=== PATIENT | male | born 1970 | race Caucasian/White ===

== ENCOUNTER 2018-03-14 21:05 | Emergency (ER) | payer BC ==
--- NOTE | 2018-03-14 21:07 | ER Report ---
History and Physical Time Seen By MD: 21:07 HPI/ROS CHIEF COMPLAINT: Right-sided flank and right sided abdominal pain HISTORY OF PRESENT ILLNESS: Patient is a 48-year-old male here with complaints of right-sided flank pain with radiation to the right groin, hematuria which started approximately 45 minutes prior to arrival. Patient denies prior history of nephrolithiasis. Patient reports moderate distress and severe pain. Patient denies chest pain, shortness breath, fevers, chills, dysuria, headache, blurred vision. REVIEW OF SYSTEMS: Constitutional: No fever, no chills. Eyes: No discharge. ENT: No sore throat. Cardiovascular: No chest pain, no palpitations. Respiratory: No cough, no shortness of breath. Gastrointestinal: + right abdominal pain, + nausea Genitourinary: + hematuria, + dysuria Musculoskeletal: + right flank pain. Skin: No rashes. Neurological: No headache. Allergies: Coded Allergies: No Known Drug Allergies (Unverified , 03/14/18) Home Meds Active Scripts Phenazopyridine Hcl (PHENAZOPYRIDINE HCL) 200 Mg Tablet, 200 MG PO TID for 2 Days, #6 TAB Prov:ELSA MALIN DO 03/14/18 Tamsulosin Hcl (FLOMAX) 0.4 Mg Cap.er.24h, 0.4 MG PO QDAY, #14 CAP 0 Refills Prov:ELSA MALIN DO 03/14/18 Ondansetron (ZOFRAN ODT) 4 Mg Tab.rapdis, 4 MG PO Q6H Y for NAUSEA/VOMITING, # 20 TAB.HEMA 0 Refills Prov:ELSA MALIN DO 03/14/18 Tramadol Hcl (TRAMADOL HCL) 50 Mg Tablet, 50 MG PO Q6H Y for PAIN, #12 TAB 0 Refills Prov:ELSA MALIN DO 03/14/18 Constitutional Vital Sign - Last 24 Hours 03/14/18 03/14/18 03/14/18 03/14/18 21:11 21:30 21:35 22:15 Temp 98.3 Pulse 76 ??? Resp 24 B/P (MAP) 141/108 145/91 (109) 133/97 (109) Pulse Ox 98 92 03/14/18 03/14/18 03/14/18 03/14/18 22:24 22:25 22:30 22:45 Pulse 68 ??? 76 B/P (MAP) 120/72 (88) Pulse Ox 100 100 100 O2 Flow Rate 2.0 03/14/18 23:00 Pulse 77 B/P (MAP) 106/66 (79) Pulse Ox 99 Physical Exam General Appearance: The patient is alert, has no immediate need for airway protection and no signs of toxicity. + moderate distress due to pain Eyes: Pupils equal and round no pallor or injection. ENT, Mouth: Mucous membranes are moist. Respiratory: There are no retractions, lungs are clear to auscultation. Cardiovascular: Regular rate and rhythm. Gastrointestinal: Abdomen is soft and + tender in the right lower abdomen, no masses, bowel sounds normal. Neurological: No focal neuro deficits Skin: Warm and dry, no rashes. Musculoskeletal: + right flank pain Extremities are nontender, nonswollen and have full range of motion. DIFFERENTIAL DIAGNOSIS: After history and physical exam differential diagnosis was considered for abdominal pain including but not limited to appendicitis, cholecystitis, gastritis and urinary tract infection. Nephrolithiasis, pyelonephritis Medical Decision Making Data Points Result Diagram: 03/14/18211703/14/188 Laboratory Hematology Test 03/14/18 21:18 03/14/18 21:19 Red Blood Count 5.20 M/uL (4.00-5.60) Mean Corpuscular Volume 85.2 fL (80.0-96.0) Mean Corpuscular Hemoglobin 29.2 pg (26.0-33.0) Mean Corpuscular Hemoglobin Concent 34.3 g/dL (32.0-36.0) Red Cell Distribution Width 13.1 % (11.5-14.5) Mean Platelet Volume 8.0 fL (7.2-11.1) Neutrophils (%) (Auto) % (39.4-72.5) Lymphocytes (%) (Auto) % (17.6-49.6) Monocytes (%) (Auto) % (4.1-12.4) Eosinophils (%) (Auto) % (0.4-6.7) Basophils (%) (Auto) % (0.3-1.4) Nucleated RBC Relative Count (auto) /100WBC Neutrophils # (Auto) K/uL (2.0-7.4) Lymphocytes # (Auto) K/uL (1.3-3.6) Monocytes # (Auto) K/uL (0.3-1.0) Eosinophils # (Auto) K/uL (0.0-0.5) Basophils # (Auto) K/uL (0.0-0.1) Nucleated RBC Absolute Count (auto) K/uL Neutrophils % (Manual) 63 % (39.4-72.5) Lymphocytes % (Manual) 16 % (17.6-49.6) Atypical Lymphocytes % 12 % Monocytes % (Manual) 7 % (4.1-12.4) Eosinophils % (Manual) 2 % (0.4-6.7) Basophils % (Manual) 0 % (0.3-1.4) Peripheral Blood Smear Yes Y/N Sodium Level 140 mmol/L (137-145) Potassium Level 3.3 mmol/L (3.5-5.0) Chloride Level 103 mmol/L (98-107) Carbon Dioxide Level 26 mmol/L (22-30) Blood Urea Nitrogen 20 mg/dl (9-21) Creatinine 1.50 mg/dl (0.66-1.25) Glomerular Filtration Rate Calc 49.7 Random Glucose 120 mg/dl (75-110) Calcium Level 9.0 mg/dl (8.4-10.2) Total Bilirubin 0.3 mg/dl (0.2-1.3) Aspartate Amino Transf (AST/SGOT) 21 U/L (0-35) Alanine Aminotransferase (ALT/SGPT) 17 U/L (0-56) Alkaline Phosphatase 66 U/L (0-126) Total Protein 7.0 g/dl (6.3-8.2) Albumin 4.2 g/dl (3.5-5.0) Lipase 79 U/L (23-300) Urine Color Yellow Urine Clarity Cloudy Urine pH 5.0 pH (4.8-9.5) Urine Specific Marion 1.025 Urine Protein 30 mg/dL (NEGATIVE) Urine Glucose (UA) Negative mg/dL (NEGATIVE) Urine Ketones Negative mg/dL (NEGATIVE) Urine Blood Large (NEGATIVE) Urine Nitrite Negative (NEGATIVE) Urine Bilirubin Negative (NEGATIVE) Urine Urobilinogen 2.0 mg/dL (0.2-1.9) Urine Leukocyte Esterase Negative (NEGATIVE) Urine RBC 809 /HPF (0-2/HPF) Urine WBC 9 /HPF (0-5/HPF) Urine Squamous Epithelial Cells Moderate /LPF (</=FEW) Urine Transitional Epithelial Cells Few /LPF (NONE-FEW) Urine Calcium Oxalate Crystals Few /HPF (NONE) Urine Bacteria Negative /HPF (NONE-FEW) Urine Mucus Few /HPF (NONE-FEW) Chemistry Test 03/14/18 21:18 03/14/18 21:19 White Blood Count 13.7 k/uL (4.5-11.0) Red Blood Count 5.20 M/uL (4.00-5.60) Hemoglobin 15.2 g/dL (14.0-18.0) Hematocrit 44.3 % (42.0-52.0) Mean Corpuscular Volume 85.2 fL (80.0-96.0) Mean Corpuscular Hemoglobin 29.2 pg (26.0-33.0) Mean Corpuscular Hemoglobin Concent 34.3 g/dL (32.0-36.0) Red Cell Distribution Width 13.1 % (11.5-14.5) Platelet Count 347 K/uL (150-450) Mean Platelet Volume 8.0 fL (7.2-11.1) Neutrophils (%) (Auto) % (39.4-72.5) Lymphocytes (%) (Auto) % (17.6-49.6) Monocytes (%) (Auto) % (4.1-12.4) Eosinophils (%) (Auto) % (0.4-6.7) Basophils (%) (Auto) % (0.3-1.4) Nucleated RBC Relative Count (auto) /100WBC Neutrophils # (Auto) K/uL (2.0-7.4) Lymphocytes # (Auto) K/uL (1.3-3.6) Monocytes # (Auto) K/uL (0.3-1.0) Eosinophils # (Auto) K/uL (0.0-0.5) Basophils # (Auto) K/uL (0.0-0.1) Nucleated RBC Absolute Count (auto) K/uL Neutrophils % (Manual) 63 % (39.4-72.5) Lymphocytes % (Manual) 16 % (17.6-49.6) Atypical Lymphocytes % 12 % Monocytes % (Manual) 7 % (4.1-12.4) Eosinophils % (Manual) 2 % (0.4-6.7) Basophils % (Manual) 0 % (0.3-1.4) Peripheral Blood Smear Yes Y/N Glomerular Filtration Rate Calc 49.7 Calcium Level 9.0 mg/dl (8.4-10.2) Total Bilirubin 0.3 mg/dl (0.2-1.3) Aspartate Amino Transf (AST/SGOT) 21 U/L (0-35) Alanine Aminotransferase (ALT/SGPT) 17 U/L (0-56) Alkaline Phosphatase 66 U/L (0-126) Total Protein 7.0 g/dl (6.3-8.2) Albumin 4.2 g/dl (3.5-5.0) Lipase 79 U/L (23-300) Urine Color Yellow Urine Clarity Cloudy Urine pH 5.0 pH (4.8-9.5) Urine Specific Marion 1.025 Urine Protein 30 mg/dL (NEGATIVE) Urine Glucose (UA) Negative mg/dL (NEGATIVE) Urine Ketones Negative mg/dL (NEGATIVE) Urine Blood Large (NEGATIVE) Urine Nitrite Negative (NEGATIVE) Urine Bilirubin Negative (NEGATIVE) Urine Urobilinogen 2.0 mg/dL (0.2-1.9) Urine Leukocyte Esterase Negative (NEGATIVE) Urine RBC 809 /HPF (0-2/HPF) Urine WBC 9 /HPF (0-5/HPF) Urine Squamous Epithelial Cells Moderate /LPF (</=FEW) Urine Transitional Epithelial Cells Few /LPF (NONE-FEW) Urine Calcium Oxalate Crystals Few /HPF (NONE) Urine Bacteria Negative /HPF (NONE-FEW) Urine Mucus Few /HPF (NONE-FEW) Urinalysis Test 03/14/18 21:19 Urine Color Yellow Urine Clarity Cloudy Urine pH 5.0 pH (4.8-9.5) Urine Specific Marion 1.025 Urine Protein 30 mg/dL (NEGATIVE) Urine Glucose (UA) Negative mg/dL (NEGATIVE) Urine Ketones Negative mg/dL (NEGATIVE) Urine Blood Large (NEGATIVE) Urine Nitrite Negative (NEGATIVE) Urine Bilirubin Negative (NEGATIVE) Urine Urobilinogen 2.0 mg/dL (0.2-1.9) Urine Leukocyte Esterase Negative (NEGATIVE) Urine RBC 809 /HPF (0-2/HPF) Urine WBC 9 /HPF (0-5/HPF) Urine Squamous Epithelial Cells Moderate /LPF (</=FEW) Urine Transitional Epithelial Cells Few /LPF (NONE-FEW) Urine Calcium Oxalate Crystals Few /HPF (NONE) Urine Bacteria Negative /HPF (NONE-FEW) Urine Mucus Few /HPF (NONE-FEW) EKG/Imaging Imaging ABDOMEN/PELVIS W/O CONTRAST EXAMINATION: CT scan and pelvis without contrast HISTORY: Renal colic TECHNIQUE: CT scan of the abdomen and pelvis performed from the lung base through pubic symphysis without contrast from lung base through pubic symphysis. COMPARISON STUDIES: None One of the following dose optimization techniques was utilized in the performance of this exam: Automated exposure control; adjustment of the mA and/ or kV according to the patient's size; or use of an iterative reconstruction technique. Specific details can be referenced in the facility's radiology CT exam operational policy. FINDINGS: Please note that this exam was tailored for detection of urinary stones. Portions of the upper abdomen may not be included. Also, with intravenous contrast, sensitivity to detection of parenchymal disease is limited. Right kidney and ureter: There is obstructed right collecting system with parenchymal edema and asymmetric enlargement of the right kidney and a dilated right ureter down to an obstructing stone at the vesicoureteral junction measuring 3.5 mm. (Image 126 series 2). Several nonobstructing 2 mm stones scattered within the right kidney. 2. No obvious left renal calculi. Left kidney and ureter: Negative Bladder: Bladder is decompressed. Liver/Biliary: No gallstones Pancreas: Negative Spleen: Negative Adrenal glands: Negative Kidneys/Retroperitoneum: See above Pelvic structures: Negative Bowel/peritoneum/mesenteries: No bowel edema. Appendix normal no appendicitis Vessels: Mild atherosclerotic disease. No aneurysmal dilatation. Musculoskeletal/body wall: Negative Lymph node assessment: Negative Lower chest: Negative IMPRESSION: Moderate right renal hydronephrosis from obstructing 3.5 mm distal right ureteral stone. ED Course/Re-evaluation ED Course Patient is a 48-year-old male here with complaints of right-sided flank pain with radiation to the groin and hematuria. Patient is afebrile, hemodynamically stable at time of evaluation. Urinalysis showed no acute signs of infection. Labs did demonstrate mild elevation of creatinine likely not due to this acute process. Patient was advised to follow-up with his family doctor for further evaluation of the elevated creatinine. CT imaging confirms a 3.5 cm distal right ureteral stone with moderate hydronephrosis of the right kidney. I explained to the patient that due to the size of the stone, it will likely pass spontaneously. Patient was given lidocaine intravenously, morphine and Toradol as well as fluids and Zofran for symptom management. He was given Pyridium, Flomax and prescription for Zofran for home use. I recommended that the patient follow up with urology in the outpatient setting in the next couple days and he voiced understanding. Patient remained stable throughout course, afebrile, hemodynamically stable. Decision to Disposition Date: Mar 14, 2018 Decision to Disposition Time: 23:20 Depart Departure Latest Vital Signs Vital Signs Date Time Temp Pulse Resp B/P (MAP) Pulse Ox O2 Delivery O2 Flow Rate FiO2 03/14/18 23:00 77 106/66 (79) 99 03/14/18 22:24 2.0 03/14/18 21:11 98.3 24 Impression: Primary Impression: Ureterolithiasis Condition: Improved Disposition: HOME OR SELF-CARE New Scripts Phenazopyridine Hcl (PHENAZOPYRIDINE HCL) 200 Mg Tablet 200 MG PO TID for 2 Days, #6 TAB Prov: ELSA MALIN DO 03/14/18 Tamsulosin Hcl (FLOMAX) 0.4 Mg Cap.er.24h 0.4 MG PO QDAY, #14 CAP 0 Refills Prov: ELSA MALIN DO 03/14/18 Ondansetron (ZOFRAN ODT) 4 Mg Tab.rapdis 4 MG PO Q6H Y for NAUSEA/VOMITING, #20 TAB.HEMA 0 Refills Prov: ELSA MALIN DO 03/14/18 Tramadol Hcl (TRAMADOL HCL) 50 Mg Tablet 50 MG PO Q6H Y for PAIN, #12 TAB 0 Refills Prov: ELSA MALIN DO 03/14/18 Patient Instructions: Kidney Stones (ED), Ondansetron (By mouth, Into the mouth ), Tamsulosin (By mouth), Tramadol (By mouth) Additional Instructions: You may take 1 tablet of tramadol every 8 hours as needed for pain. You may take Zofran 1 tablet every 8 hours as needed for nausea. You may take Pyridium one tablet 3 times a day for 2 days. You may take 1 tablet of Flomax daily until the stone passes. Please follow-up with urology in the next 3 days. Please return promptly if you develop fevers, worsening pain, nausea, vomiting, inability to tolerate oral intake. ELSA MALIN DO Mar 14, 2018 21:07
[2018-03-14] MEDS ORDERED: NS(*) 0.9% 1000 ML BAG 1,000 ML IV ONE (21:14)
[2018-03-14] MEDS ORDERED: ONDANSETRON 4 MG/2 ML VIAL IVP ONE (21:15)
[2018-03-14] MEDS ORDERED: LIDOCAINE 2% IV 100 MG/5ML SYR IVP ONE (21:15)
[2018-03-14 21:28] LABS: PLATELET COUNT, AUTOMATED 347 K/uL (150-450)
[2018-03-14] MEDS ORDERED: KETOROLAC 30 MG/ML VIAL IVP ONE (21:40)
[2018-03-14] MEDS ORDERED: MORPHINE 10 MG/ML SYR IVP ONE (21:55)
[2018-03-14] MEDS ORDERED: PHENAZOPYRIDINE 200 MG TAB PO ONE (22:30)
[2018-03-14] MEDS ORDERED: TAMSULOSIN HCL 0.4 MG CAP PO ONE (22:30)
--- NOTE | 2018-03-14 22:37 | RADIOLOGY IMAGING REPORT ---
FACILITY: [facility] PATIENT NAME: Jose Burger : 1970 MR: [id number] V: [id number] EXAM DATE: ORDERING PHYSICIAN: ELSA MALIN TECHNOLOGIST: Location: [facility] [place] Patient: Jose Burger : 1970 Visit/Account:[id number] Date of Sevice: 03/14/2018 ABDOMEN/PELVIS W/O CONTRAST EXAMINATION: CT scan and pelvis without contrast HISTORY: Renal colic TECHNIQUE: CT scan of the abdomen and pelvis performed from the lung base through pubic symphysis wit hout contrast from lung base through pubic symphysis. COMPARISON STUDIES: None One of the following dose optimization techniques was utilized in the performance of this exam: Autom ated exposure control; adjustment of the mA and/or kV according to the patient's size; or use of an i terative reconstruction technique. Specific details can be referenced in the facility's radiology C T exam operational policy. FINDINGS: Please note that this exam was tailored for detection of urinary stones. Portions of the upper abdome n may not be included. Also, with intravenous contrast, sensitivity to detection of parenchymal disea se is limited. Right kidney and ureter: There is obstructed right collecting system with parenchymal edema and asymm etric enlargement of the right kidney and a dilated right ureter down to an obstructing stone at the vesicoureteral junction measuring 3.5 mm. (Image 126 series 2). Several nonobstructing 2 mm stones sc attered within the right kidney. 2. No obvious left renal calculi. Left kidney and ureter: Negative Bladder: Bladder is decompressed. Liver/Biliary: No gallstones Pancreas: Negative Spleen: Negative Adrenal glands: Negative Kidneys/Retroperitoneum: See above Pelvic structures: Negative Bowel/peritoneum/mesenteries: No bowel edema. Appendix normal no appendicitis Vessels: Mild atherosclerotic disease. No aneurysmal dilatation. Musculoskeletal/body wall: Negative Lymph node assessment: Negative Lower chest: Negative IMPRESSION: Moderate right renal hydronephrosis from obstructing 3.5 mm distal right ureteral stone. Report Dictated By: Pete Shaikh MD at 03/14/2018 10:28 PM Report E-Signed By: Pete Shaikh MD at 03/14/2018 10:33 PM [id number]
[2018-03-14 23:00] VITALS: BP 106/66
[2018-03-14] MEDS ORDERED: ONDA4TAB PO (23:04)
[2018-03-14] MEDS ORDERED: TRAM-420 PO (23:04)
[2018-03-14] MEDS ORDERED: PHEN200T32 PO (23:04)
[2018-03-14] MEDS ORDERED: TAMS0.4C25 PO (23:04)
[2018-03-14] MEDS ORDERED: ONDANSETRON 4 MG ODT TH SL ONE (23:10)
[2018-03-14] MEDS ORDERED: traMADol 50 MG TAB TH 2 TAB/BOTTLE PO ONE (23:10)
== END 2018-03-14 23:28 | disposition home or self-care (01) ==
LOC: ER 21:19
DX: N20.1 Calculus of ureter (principal)
CPT/HCPCS: 74176; 81001; 83690; 85025; 96361; 96374; 96375; 99284; C9399; J1885; J2001; J2270; J2405; J7030; S0119; 82040; 82247; 82310; 82374; 82435; 82565; 82947; 84075; 84132; 84155; 84295; 84450; 84460; 84520